=== PATIENT | female | born 1970 | race Caucasian/White ===

== ENCOUNTER 2017-12-12 14:22 | Emergency (ER) | payer OTHER ==
[2017-12-12] MEDS ORDERED: LEVO-3 PO (14:44)
[2017-12-12] MEDS ORDERED: ATOR10TA24 PO (14:44)
--- NOTE | 2017-12-12 14:54 | ER Report ---
History and Physical Time Seen By MD: 14:54 Hx. of Stated Complaint: PT REPORTS LG FEVERS FOR 2 WEEKS, COUGH, SINUS CONGESTION HPI/ROS 47-year-old female presents to the emergency department with worsening two-week cough and congestion. She has seen her primary care physician who prescribed her uqks-obt-zkvrcej medications. The patient states in spite of the zawi-ftm-yiscvam meds, her symptoms are worsening. She reports that her cough is worsening. She denies asthma or COPD. She denies chest pain. She reports the cough is keeping her up at night and she has not been able to sleep. She has no other complaints. Allergies: Coded Allergies: Sulfa (Sulfonamide Antibiotics) (Verified Allergy, Unknown, 12/12/17) Home Meds Active Scripts Azithromycin (ZITHROMAX) 250 Mg Tablet, 1 TAB PO QDAY for 4 Days, #4 TAB Prov:JAMES PEREYRA MD 12/12/17 Reported Medications Atorvastatin Calcium (LIPITOR) 10 Mg Tablet, 1 TAB PO QDAY, TAB 12/12/17 Levothyroxine Sodium (LEVOTHYROXINE SODIUM) 100 Mcg Tablet, 200 MCG PO QDAY, TAB 12/12/17 Reviewed Nurses Notes: Yes Hx Smoking: No Exposure to Second Hand Smoke?: No Hx Substance Use Disorder: No Hx Alcohol Use: No Constitutional Vital Sign - Last 24 Hours 12/12/17 12/12/17 12/12/17 12/12/17 14:30 14:40 14:52 15:00 Temp 98.4 Pulse 116 121 Resp 18 B/P (MAP) 139/100 139/100 (113) 127/75 (92) Pulse Ox 90 90 O2 Delivery Room Air 12/12/17 12/12/17 12/12/17 16:00 16:03 16:30 Pulse 105 Resp 14 B/P (MAP) 109/78 (88) 106/81 (89) Physical Exam General Appearance: The patient is alert, has no immediate need for airway protection and no current signs of toxicity. ENT: TM's full b/l with L>R Eyes: Pupils equal and round no injection. Respiratory: Chest is non tender, lungs are clear to auscultation. Cardiac: regular rate and rhythm Gastrointestinal: Abdomen is soft and non tender, no masses, bowel sounds normal. Neck: Neck is supple and non tender. Extremities have full range of motion and are non tender. Skin: No rashes or lesions. DIFFERENTIAL DIAGNOSIS: After history and physical exam differential diagnosis was considered for shortness of breath including but not limited to pulmonary infectious process, COPD, asthma, pulmonary embolus and congestive heart failure. Medical Decision Making EKG/Imaging Imaging X-ray: Chest was obtained. I viewed the images myself on the PACS system. My interpretation of the images is: No evidence of infiltrate. The radiologist interpretation had no clinically significant variation from this interpretation. ED Course/Re-evaluation ED Course Worsening cough and URI symptoms for 2 weeks. While this is likely viral, given the length and worsening of symptoms, is reasonable to consider community acquired atypical pneumonia with a normal chest x-ray. Not consistent with a PE, ACS, or congestive heart failure. She is going to continue iasl-uhw-ocxskqb supportive meds, and I gave her prescription for azithromycin as well. She can follow with her primary care physician. Decision to Disposition Date: Dec 12, 2017 Decision to Disposition Time: 17:24 Depart Departure Latest Vital Signs Vital Signs Date Time Temp Pulse Resp B/P (MAP) Pulse Ox O2 Delivery O2 Flow Rate FiO2 12/12/17 16:30 106/81 (89) 12/12/17 16:03 105 14 12/12/17 14:52 90 12/12/17 14:30 98.4 Room Air Impression: Primary Impression: Community acquired pneumonia Condition: Improved Disposition: HOME OR SELF-CARE Referrals: SUSANNE PACE DO (PCP) New Scripts Azithromycin (ZITHROMAX) 250 Mg Tablet 1 TAB PO QDAY for 4 Days, #4 TAB Prov: JAMES PEREYRA MD 12/12/17 Patient Instructions: Community Acquired Pneumonia (ED) Problem Qualifiers Primary Impression: Community acquired pneumonia Laterality: unspecified laterality Qualified Codes: J18.9 - Pneumonia, unspecified organism JAMES PEREYRA MD Dec 12, 2017 14:54
[2017-12-12] MEDS ORDERED: ALBUTEROL/IPRATROPIUM 3 ML NEB NEB ONE (15:45)
[2017-12-12] MEDS ORDERED: DEXAMETHASONE 4 MG TAB PO ONE (15:45)
[2017-12-12] MEDS ORDERED: guaiFENesin 600 MG TABCR PO ONE (15:45)
--- NOTE | 2017-12-12 17:02 | RADIOLOGY IMAGING REPORT ---
FACILITY: [facility] PATIENT NAME: Jocelyn Reddy : 1970 MR: [id number] V: [id number] EXAM DATE: ORDERING PHYSICIAN: JAMES PEREYRA TECHNOLOGIST: Location: [facility] [place] Patient: Jocelyn Reddy : 1970 Visit/Account:[id number] Date of Sevice: 12/12/2017 CHEST PA AND LAT COMPARISONS: None. ADDITIONAL PERTINENT HISTORY: Cough for 2 weeks. FINDINGS: Cardiomediastinal silhouette: Negative. Pulmonary vasculature: Negative. Lung hillman: Negative. Pleural spaces: Negative. Osseous structures: Negative. Surrounding soft tissues: Negative. IMPRESSION: No evidence of acute cardiopulmonary disease. Report Dictated By: Rip Melvin MD at 12/12/2017 4:56 PM Report E-Signed By: Rip Melvin MD at 12/12/2017 4:57 PM WSN:[id number]
[2017-12-12] MEDS ORDERED: AZITHROMYCIN 250 MG TAB PO ONE (17:15)
[2017-12-12] MEDS ORDERED: AZIT-1 PO (17:27)
[2017-12-12 17:30] VITALS: BP 110/79
== END 2017-12-12 17:29 | disposition home or self-care (01) ==
LOC: ER 14:59
DX: J18.9 Pneumonia, unspecified organism (principal)
CPT/HCPCS: 71046; 94640; 99283; J7620; J8540; Q0144

== ENCOUNTER → 2018-10-13 | Outpatient (CLI) | payer OTHER ==
[~2018-10-13] MED LIST: ATOR10TA24 PO; AZIT-1 PO; LEVO-3 PO
--- NOTE | 2018-10-14 08:21 | RADIOLOGY IMAGING REPORT ---
FACILITY: [facility] [place] PATIENT NAME: DIMITRY COVARRUBIAS : [id number] MR: [id number] V: [id number] EXAM DATE: [id number] ORDERING PHYSICIAN: SUSANNE PACE TECHNOLOGIST: Di Hare PROCEDURE: BILATERAL DIGITAL SCREENING MAMMOGRAM WITH CAD ASSISTED INTERPRETATION & 3D TOMOSYNTHESIS. REASON FOR STUDY: Screening. FAMILY HISTORY OF BREAST CANCER: Mother. BREAST PROCEDURES/TREATMENTS: None. COMPARISON: 07/24/16, 04/24/15, 03/29/15. VIEWS OBTAINED: 2D & 3D full field CC & MLO. BREAST DENSITY: There are scattered areas of fibroglandular density throughout the breasts. MAMMOGRAM FINDINGS: The parenchymal pattern has remained stable allowing for difference in mammographic technique & patient positioning. IMPRESSION: BIRADS 1: Negative. DIAGNOSTIC CATEGORY 1--NEGATIVE. RECOMMENDATIONS: ROUTINE MAMMOGRAM AND CLINICAL EVALUATION. Dictated by: Scarlet Teixeira M.D. on 10/13/2018 at 15:12 Transcribed by: OLLIE on 10/13/2018 at 16:01 Approved by: Scarlet Teixeira M.D. on 10/14/2018 at 8:18 [facility]
== END ==
LOC: MAMO 00:22
PROVIDERS: ATTEND Family Medicine
DX: Z12.31 Encounter for screening mammogram for malignant neoplasm of breast (principal)
CPT/HCPCS: 77063; 77067